=== PATIENT | male | born 1950 | race Caucasian/White ===

== ENCOUNTER 2017-12-05 09:52 | Emergency (ER) | payer MEDICARE, OTHER ==
[~2017-12-05] VITALS: Ht 177.8 cm; Wt 82.5 kg
[2017-12-05] MEDS ORDERED: CLON.5 PO (10:19)
[2017-12-05] MEDS ORDERED: HYDHCL25 PO (10:19)
[2017-12-05] MEDS ORDERED: ATOR10 PO (10:26)
[2017-12-05] MEDS ORDERED: ATEN50 PO (10:26)
[2017-12-05] MEDS ORDERED: AMLO5 PO (10:26)
== END 2017-12-05 10:27 | disposition home or self-care (01) ==
LOC: ER 09:52
DX: Z76.0 Encounter for issue of repeat prescription (principal)
CPT/HCPCS: 99281

== ENCOUNTER 2018-01-07 07:20 | Day surgery (SDC) | payer MEDICARE, OTHER ==
[~2018-01-07] VITALS: Ht 177.8 cm; Wt 85.7 kg
[~2018-01-07 07:20] MED LIST: AMLO5 PO; ATEN50 PO; ATOR10 PO; BENA20 PO; CLON.5 PO; Dyazide 37.5-21 EACH PO; HYDHCL25 PO
== END 2018-01-07 22:36 | disposition home or self-care (01) ==
LOC: ORSCMMR 07:20 → ORD 08:30 → ORSCMMR 08:30
PROVIDERS: Internal Medicine Gastroenterology
PROC: 0DBN8ZX Excision of Sigmoid Colon, Via Natural or Artificial Opening Endoscopic, Diagnostic (ICD-10-PCS; principal; 2018-01-07 08:30)
DX: K92.1 Melena (principal); D12.5 Benign neoplasm of sigmoid colon; K64.4 Residual hemorrhoidal skin tags; Z86.010 Personal history of colon polyps; E78.00 Pure hypercholesterolemia, unspecified; I10 Essential (primary) hypertension; Z79.899 Other long term (current) drug therapy
CPT/HCPCS: 88305; J7120

== ENCOUNTER 2019-01-30 14:03 | Day surgery (SDC) | payer MEDICARE, OTHER ==
[~2019-01-30] VITALS: Ht 171 cm; Wt 87.7 kg
[~2019-01-30 14:03] MED LIST changes: +ALLO100 PO; +AMLO10 PO; +AMOX875 PO; +BACL10; +Benazepril HCl10 MG PO; +Neurontin 300300 MG PO; +OXYC1TAB11 PO; +XTAMPZA ER9 MG PO
--- NOTE | 2019-01-30 14:35 | NUR ---
Ambulatory in Day Surgery. Patient reports completing Chlorhexadine shower X2 prior to admission to hospital. Patient confirms NPO status and agrees with scheduled surgery. History, Chart, Medications and Allergies reviewed before start of procedure.Surgical site prepped with 2% Chlorhexidine cloth wipe. Patient States Post-Procedure ride home has been arranged. Lungs clear T/O to Auscultation.
--- NOTE | 2019-01-30 16:06 | NUR ---
Patient up to Ambulate independently. Gait steady. Discharge instructions reviewed with patient. Patient verbalizes understanding. Copy given to patient to take home. Patient States Post-Procedure ride home has been arranged. Discharged via wheelchair to private car for ride home. ALL BELONINGS ACCOUNTED FOR AND RETURNED TO PATIENT.
== END 2019-01-30 16:06 | disposition home or self-care (01) ==
LOC: SURS 14:03 → ORSCMMR 14:03 → ORD 15:30 → ORSCMMR 15:30 → SURS 16:06 → ORSCMMR 16:06
PROVIDERS: Orthopaedic Surgery
PROC: 0PPT04Z Removal of Internal Fixation Device from Right Finger Phalanx, Open Approach (ICD-10-PCS; principal; 2019-01-30 15:30)
DX: T84.84XA Pain due to internal orthopedic prosthetic devices, implants and grafts, initial encounter (principal); I10 Essential (primary) hypertension; Z86.73 Personal history of transient ischemic attack (TIA), and cerebral infarction without residual deficits; Z79.899 Other long term (current) drug therapy
CPT/HCPCS: 73120; A9270-GY; J0690; J2250; J2704; J3010; J7120

== ENCOUNTER 2019-02-04 00:18 | Emergency (ER) | payer MEDICARE, OTHER ==
[~2019-02-04] VITALS: Ht 177.8 cm; Wt 86.2 kg
== END 2019-02-04 00:59 | disposition home or self-care (01) ==
LOC: ER 00:18
DX: Z48.89 Encounter for other specified surgical aftercare (principal); I10 Essential (primary) hypertension; Z87.891 Personal history of nicotine dependence; Z79.899 Other long term (current) drug therapy; Z79.891 Long term (current) use of opiate analgesic
CPT/HCPCS: 99283

== ENCOUNTER 2019-02-27 14:27 | Emergency (ER) | payer MEDICARE, OTHER ==
[~2019-02-27] VITALS: Ht 177.8 cm; Wt 79.8 kg
[2019-02-27 15:11] LABS: BASOPHILS ABSOLUTE AUTO 0.06 K/mm3 (0.00-0.23); BASOPHILS PERCENT AUTO 1 % (0-2); EOSINOPHILS ABSOLUTE AUTO 0.05 K/mm3 (0.00-0.68); EOSINOPHILS PERCENT AUTO 1 % (0-6); Hemoglobin 14.4 g/dL (13.5-17.5); IMMATURE GRAN ABSOLUTE AUTO 0.03 K/mm3 (0.00-0.10); IMMATURE GRAN PERCENT AUTO 0 % (0-1); LYMPHOCYTES ABSOLUTE AUTO 0.99 K/mm3 (0.84-5.20); LYMPHOCYTES PERCENT AUTO 9 % (21-46); MONOCYTES ABSOLUTE AUTO 0.91 K/mm3 (0.16-1.47); MONOCYTES PERCENT AUTO 9 % (4-13); Mean Corpuscular HGB 29.9 pg (26.0-34.0); Mean Corpuscular HGB Conc 32.7 g/dL (31.5-36.5); Mean Corpuscular Volume 92 fL (80-100); Mean Platelet Volume 10.3 fL (9.1-12.4); NEUTROPHILS ABSOLUTE AUTO 8.55 K/mm3 (1.96-9.15); NEUTROPHILS PERCENT AUTO 81 % (41-73); Platelet Count 271 K/mm3 (150-400); RDW Coefficient Variation 13.2 % (11.7-14.2); RDW Standard Deviation 44.5 fL (35.1-46.3); Red Blood Cell Count 4.81 M/mm3 (4.30-5.90); White Blood Cell Count 10.59 K/mm3 (4.00-11.30)
[2019-02-27 15:34] LABS: Alanine Aminotransfer (ALT/SGP 28 U/L (12-78); Albumin, Blood 4.3 g/dL (3.4-5.0); Albumin/Globulin Ratio 1.3 (0.8-1.8); Alk Phos 115 U/L (50-136); Anion Gap 9 mmol/L (6-16); Aspartate Aminotrans (AST/SGOT 39 U/L (12-37); Bilirubin, Total 0.9 mg/dL (0.1-1.0); Blood Urea Nitrogen 18 mg/dL (8-24); Bun/Creatinine Ratio 9.1 (12.0-20.0); CO2, Blood 23 mmol/L (21-32); Calcium, Blood 9.3 mg/dL (8.5-10.1); Chloride, Blood 109 mmol/L (98-108); Creatinine, Blood 1.98 mg/dL (0.60-1.20); Globulin, Blood 3.3 g/dL (2.2-4.0); Glomerular Filtration Rate 36 (60-); Glucose, Blood 113 mg/dL (70-99); Sodium, Blood 141 mmol/L (136-145); Total Protein, Blood 7.6 g/dL (6.4-8.2)
[2019-02-27] MEDS ORDERED: BENA20 PO (15:38)
[2019-02-27] MEDS ORDERED: CLON.5 PO (15:39)
[2019-02-27 16:28] LABS: Source, Urine Clean Catch
[2019-02-27 16:34] LABS: Bilirubin, Urine Neg (Neg); Blood, Urine Neg (Neg); Glucose Qualitative, Urine Neg (Neg); Ketones, Urine 1+ (Neg); Leukocyte Esterase, Urine Neg (Neg); Nitrite, Urine Neg (Neg); Protein, Urine 2+ (Neg); Specific Gravity, Urine 1.015 (1.003-1.022); Urobilinogen, Urine 2+ (Normal)
[2019-02-27 16:48] LABS: Appearance, Urine Clear (Clear); Color, Urine Yellow (P-Yellow)
[2019-02-27 16:49] LABS: Bacteria Mod /hpf; Hyaline Casts TNTC /lpf (0-2); Mucus Light (0-Heavy); Red Blood Cells, Urine Not Seen /hpf (0-2); Squamous Epithelial Cells Few /hpf (Few); White Blood Cells, Urine 0-2 /hpf (0-5)
== END 2019-02-27 17:15 | disposition home or self-care (01) ==
LOC: ER 14:27
PROVIDERS: Physician Assistant
DX: I95.9 Hypotension, unspecified (principal); I10 Essential (primary) hypertension; Z79.899 Other long term (current) drug therapy; Z79.891 Long term (current) use of opiate analgesic
CPT/HCPCS: 36415; 80053; 81001; 84484; 85025; 93005; 93010; 99283-25; J7030

== ENCOUNTER 2020-01-21 01:06 | Emergency (ER) | payer MEDICARE ==
[~2020-01-21] VITALS: Ht 177.8 cm; Wt 81.7 kg
== END 2020-01-21 02:51 | disposition home or self-care (01) ==
LOC: ER 01:06
DX: L25.9 Unspecified contact dermatitis, unspecified cause (principal); Z79.899 Other long term (current) drug therapy
CPT/HCPCS: 96372; 99282; J3301

== ENCOUNTER 2020-01-27 18:02 | Emergency (ER) | payer MEDICARE ==
[~2020-01-27] VITALS: Ht 177.8 cm; Wt 83.9 kg
[2020-01-27] MEDS ORDERED: AMOCLA875 PO (19:05)
== END 2020-01-27 19:12 | disposition home or self-care (01) ==
LOC: ER 18:02
DX: S61.251A Open bite of left index finger without damage to nail, initial encounter (principal); I10 Essential (primary) hypertension; Z79.899 Other long term (current) drug therapy; Z23 Encounter for immunization; W54.0XXA Bitten by dog, initial encounter
CPT/HCPCS: 90471; 90714; 99283-25

== ENCOUNTER 2020-07-02 10:59 | Emergency (ER) | payer MEDICARE, SELFPAY ==
[~2020-07-02] VITALS: Ht 177.8 cm; Wt 85.7 kg
[~2020-07-02 10:59] MED LIST changes: +AMOCLA875 PO
[2020-07-02 11:33] LABS: BASOPHILS ABSOLUTE AUTO 0.12 K/mm3 (0.00-0.23); BASOPHILS PERCENT AUTO 1 % (0-2); EOSINOPHILS ABSOLUTE AUTO 0.17 K/mm3 (0.00-0.68); EOSINOPHILS PERCENT AUTO 1 % (0-6); Hemoglobin 15.4 g/dL (13.5-17.5); IMMATURE GRAN ABSOLUTE AUTO 0.06 K/mm3 (0.00-0.10); IMMATURE GRAN PERCENT AUTO 1 % (0-1); LYMPHOCYTES ABSOLUTE AUTO 0.77 K/mm3 (0.84-5.20); LYMPHOCYTES PERCENT AUTO 6 % (21-46); MONOCYTES PERCENT AUTO 9 % (4-13); Mean Corpuscular HGB 30.9 pg (26.0-34.0); Mean Corpuscular HGB Conc 32.8 g/dL (31.5-36.5); Mean Corpuscular Volume 94 fL (80-100); Mean Platelet Volume 10.1 fL (9.1-12.4); NEUTROPHILS PERCENT AUTO 83 % (41-73); Platelet Count 244 K/mm3 (150-400); RDW Coefficient Variation 12.6 % (11.7-14.2); RDW Standard Deviation 43.8 fL (35.1-46.3); Red Blood Cell Count 4.99 M/mm3 (4.30-5.90); White Blood Cell Count 12.72 K/mm3 (4.00-11.30)
[2020-07-02 11:50] LABS: Source, Urine Clean Catch
[2020-07-02 11:51] LABS: Bilirubin, Total 0.8 mg/dL (0.1-1.0); Bun/Creatinine Ratio 12.7 (12.0-20.0); Calcium, Blood 8.8 mg/dL (8.5-10.1); Creatinine, Blood 1.89 mg/dL (0.60-1.20); Globulin, Blood 4.2 g/dL (2.2-4.0); Potassium, Blood 4.6 mmol/L (3.5-5.5); Total Protein, Blood 8.2 g/dL (6.4-8.2)
[2020-07-02 12:40] LABS: Appearance, Urine Hazy (Clear); Blood, Urine 1+ (Neg); Color, Urine Yellow (P-Yellow); Glucose Qualitative, Urine Neg (Neg); Ketones, Urine Neg (Neg); Leukocyte Esterase, Urine 1+ (Neg); Nitrite, Urine Neg (Neg); Protein, Urine 3+ (Neg); Urobilinogen, Urine 1+ (Normal)
[2020-07-02 12:54] LABS: Bilirubin, Urine 2+ (Neg)
[2020-07-02 12:55] LABS: Bacteria Mod /hpf; Squamous Epithelial Cells Rare /hpf (Few)
[2020-07-02 12:56] LABS: Granular Casts 0-2 /lpf (0)
[2020-07-02] MEDS ORDERED: CEFP200 PO (13:47)
== END 2020-07-02 14:22 | disposition home or self-care (01) ==
LOC: ER 10:59
PROVIDERS: Emergency Medicine
DX: T40.601A Poisoning by unspecified narcotics, accidental (unintentional), initial encounter (principal); N17.9 Acute kidney failure, unspecified; N39.0 Urinary tract infection, site not specified; Z79.899 Other long term (current) drug therapy
CPT/HCPCS: 36415; 80053; 81001; 85025; 87086; 93005; 93010; 96374; 99284-25; J2310

== ENCOUNTER 2021-01-01 19:42 | Emergency (ER) | payer MEDICARE ==
[~2021-01-01] VITALS: Ht 177.8 cm; Wt 81.7 kg
[~2021-01-01 19:42] MED LIST changes: +CEFP200 PO
[2021-01-01 22:42] LABS: BASOPHILS ABSOLUTE AUTO 0.08 K/mm3 (0.00-0.23); BASOPHILS PERCENT AUTO 1 % (0-2); EOSINOPHILS ABSOLUTE AUTO 0.04 K/mm3 (0.00-0.68); EOSINOPHILS PERCENT AUTO 1 % (0-6); Hematocrit 44.1 % (37.0-53.0); Hemoglobin 14.9 g/dL (13.5-17.5); IMMATURE GRAN ABSOLUTE AUTO 0.02 K/mm3 (0.00-0.10); IMMATURE GRAN PERCENT AUTO 0 % (0-1); LYMPHOCYTES ABSOLUTE AUTO 0.79 K/mm3 (0.84-5.20); LYMPHOCYTES PERCENT AUTO 11 % (21-46); MONOCYTES ABSOLUTE AUTO 0.76 K/mm3 (0.16-1.47); MONOCYTES PERCENT AUTO 11 % (4-13); Mean Corpuscular HGB 31.2 pg (26.0-34.0); Mean Corpuscular HGB Conc 33.8 g/dL (31.5-36.5); Mean Corpuscular Volume 93 fL (80-100); Mean Platelet Volume 10.3 fL (9.1-12.4); NEUTROPHILS ABSOLUTE AUTO 5.31 K/mm3 (1.96-9.15); NEUTROPHILS PERCENT AUTO 76 % (41-73); Platelet Count 199 K/mm3 (150-400); Red Blood Cell Count 4.77 M/mm3 (4.30-5.90)
[2021-01-01 23:01] LABS: Alanine Aminotransfer (ALT/SGP 25 U/L (12-78); Albumin, Blood 3.8 g/dL (3.4-5.0); Albumin/Globulin Ratio 0.9 (0.8-1.8); Alk Phos 99 U/L (50-136); Anion Gap 5 mmol/L (6-16); Aspartate Aminotrans (AST/SGOT 22 U/L (12-37); Bilirubin, Total 0.7 mg/dL (0.1-1.0); Blood Urea Nitrogen 14 mg/dL (8-24); Bun/Creatinine Ratio 14.5 (12.0-20.0); CO2, Blood 26 mmol/L (21-32); Calcium, Blood 8.3 mg/dL (8.5-10.1); Chloride, Blood 103 mmol/L (98-108); Creatinine, Blood 0.97 mg/dL (0.60-1.20); Globulin, Blood 4.1 g/dL (2.2-4.0); Glomerular Filtration Rate >60 (60-); Glucose, Blood 111 mg/dL (70-99); Potassium, Blood 4.1 mmol/L (3.5-5.5); Sodium, Blood 134 mmol/L (136-145); Total Protein, Blood 7.9 g/dL (6.4-8.2); Troponin I <0.015 ng/mL (0.000-0.040)
[2021-01-01 23:33] LABS: SARS-Cov-2 (COVID-19) PCR, MMC NEGATIVE (NEGATIVE)
== END 2021-01-01 23:23 | disposition home or self-care (01) ==
LOC: ER 19:42
PROVIDERS: Physician Assistant
DX: R50.83 Postvaccination fever (principal); R53.83 Other fatigue; M79.10 Myalgia, unspecified site; Z20.822 Contact with and (suspected) exposure to COVID-19
CPT/HCPCS: 36415; 71045; 80053; 84484; 85025; 93005; 93010; 99284-25; U0004

== ENCOUNTER 2021-12-05 14:53 | Emergency (ER) | payer OTHER, MEDICARE ==
[~2021-12-05] VITALS: Ht 177.8 cm; Wt 81.7 kg
== END 2021-12-05 19:45 | disposition home or self-care (01) ==
LOC: ER 14:53
DX: T40.2X1A Poisoning by other opioids, accidental (unintentional), initial encounter (principal); T42.4X1A Poisoning by benzodiazepines, accidental (unintentional), initial encounter; R40.4 Transient alteration of awareness; J80 Acute respiratory distress syndrome; I10 Essential (primary) hypertension; Y92.481 Parking lot as the place of occurrence of the external cause
CPT/HCPCS: J2310

== ENCOUNTER 2023-11-13 22:23 | Emergency (ER) | payer OTHER, MEDICARE ==
[~2023-11-13] VITALS: Ht 177.8 cm; Wt 83.9 kg
[~2023-11-13 22:23] MED LIST changes: +KLONOPIN0.5 M9 PO; +LIDO700A20 TOP
[2023-11-13 22:30] VITALS: BP 165/85
[2023-11-13] MEDS ORDERED: TRAM50 PO (23:40)
[2023-11-13] MEDS ORDERED: LIDO700A20 TOP (23:40)
== END 2023-11-13 23:52 | disposition home or self-care (01) ==
LOC: ER 22:23
DX: S20.212A Contusion of left front wall of thorax, initial encounter (principal); I10 Essential (primary) hypertension; W01.190A Fall on same level from slipping, tripping and stumbling with subsequent striking against furniture, initial encounter; Z79.899 Other long term (current) drug therapy; Z96.652 Presence of left artificial knee joint
CPT/HCPCS: 71046; 99283-25

== ENCOUNTER 2024-03-12 01:49 | Emergency (ER) | payer MEDICARE, OTHER ==
[~2024-03-12] VITALS: Ht 177.8 cm; Wt 90.7 kg
[~2024-03-12 01:49] MED LIST changes: +TRAM50 PO
[2024-03-12 01:55] VITALS: BP 120/81
== END 2024-03-12 04:38 | disposition home or self-care (01) ==
LOC: ER 01:49
DX: S63.502A Unspecified sprain of left wrist, initial encounter (principal); I10 Essential (primary) hypertension; W10.9XXA Fall (on) (from) unspecified stairs and steps, initial encounter; Z79.899 Other long term (current) drug therapy
CPT/HCPCS: 29125; 73110; 99283-25

== ENCOUNTER → 2024-04-21 | Outpatient (CLI) | payer OTHER, MEDICARE ==
[2024-04-24 05:13] LABS: ANTI-NUCLEAR AB ANA,IGG ELISA Detected (None Detected)
[2024-04-25 10:10] LABS: ANTINUCLEAR AB (ANA),HEP-2,IGG <1:80 (<1:80)
== END | disposition home or self-care (01) ==
LOC: LAB 18:44 → LAB SHORT 18:44
DX: M25.541 Pain in joints of right hand (principal); M25.542 Pain in joints of left hand
CPT/HCPCS: 83516; 85651; 86038; 86039; 86140; 86431

== ENCOUNTER 2024-10-16 04:28 | Emergency (ER) | payer MEDICARE, OTHER ==
[~2024-10-16] VITALS: Ht 177.8 cm; Wt 88.5 kg
[2024-10-16 04:38] VITALS: BP 133/92
[2024-10-16] MEDS ORDERED: Lidocaine 4% 1 Patch TOP ONE (05:05)
== END 2024-10-16 05:58 | disposition home or self-care (01) ==
LOC: ER 04:28
DX: S13.4XXA Sprain of ligaments of cervical spine, initial encounter (principal); W20.8XXA Other cause of strike by thrown, projected or falling object, initial encounter; Z59.89 Other problems related to housing and economic circumstances; I10 Essential (primary) hypertension
CPT/HCPCS: 36415; 72125; 80053; 80061; 82570; 84156; 84443; 85025; 99283-25; A9270

== ENCOUNTER 2024-12-21 11:48 | Emergency (ER) | payer MEDICARE, OTHER ==
[~2024-12-21] VITALS: Ht 177.8 cm; Wt 84.5 kg
[2024-12-21] MEDS ORDERED: AMLODIPINE BESYL5 MG PO (12:03)
[2024-12-21] MEDS ORDERED: ATENOLOL25 MG PO (12:03)
[2024-12-21 12:17] LABS: BASOPHILS ABSOLUTE AUTO 0.09 K/mm3 (0.00-0.23); BASOPHILS PERCENT AUTO 1 % (0-2); EOSINOPHILS ABSOLUTE AUTO 0.08 K/mm3 (0.00-0.68); EOSINOPHILS PERCENT AUTO 1 % (0-6); Hematocrit 41.1 % (37.0-53.0); Hemoglobin 13.8 g/dL (13.5-17.5); IMMATURE GRAN ABSOLUTE AUTO 0.02 K/mm3 (0.00-0.10); IMMATURE GRAN PERCENT AUTO 0 % (0-1); LYMPHOCYTES ABSOLUTE AUTO 1.41 K/mm3 (0.84-5.20); LYMPHOCYTES PERCENT AUTO 18 % (21-46); MONOCYTES ABSOLUTE AUTO 0.78 K/mm3 (0.16-1.47); MONOCYTES PERCENT AUTO 10 % (4-13); Mean Corpuscular HGB Conc 33.6 g/dL (31.5-36.5); Mean Corpuscular Volume 94 fL (80-100); NEUTROPHILS ABSOLUTE AUTO 5.40 K/mm3 (1.96-9.15); NEUTROPHILS PERCENT AUTO 69 % (41-73); NRBC ABSOLUTE 0.00 K/mm3 (0.00-0.02); NRBC Auto 0.0 /100 WBC (0.0-0.2); Platelet Count 246 K/mm3 (150-400); RDW Coefficient Variation 13.0 % (11.7-14.2); RDW Standard Deviation 44.4 fL (35.1-46.3)
[2024-12-21] MEDS ORDERED: Ondansetron HCl 2 MG / ML 2ML Vial IV ONE (12:35)
[2024-12-21] MEDS ORDERED: FentaNYL Citrate 50 MCG/ML 2 ML Injection IV ONE ×2 (12:35→14:10)
[2024-12-21 12:38] LABS: Alanine Aminotransfer (ALT/SGP 25.0 U/L (12-78); Albumin, Blood 3.3 g/dL (3.4-5.0); Albumin/Globulin Ratio 0.9 (0.8-1.8); Anion Gap 8.0 mmol/L (3-11); Aspartate Aminotrans (AST/SGOT 26.0 U/L (12-37); Bilirubin, Total 0.8 mg/dL (0.1-1.0); Blood Urea Nitrogen 19.0 mg/dL (8-24); CO2, Blood 25.0 mmol/L (21-32); Calcium, Blood 8.1 mg/dL (8.5-10.1); Chloride, Blood 109.0 mmol/L (98-108); Creatinine, Blood 1.31 mg/dL (0.60-1.20); Globulin, Blood 3.5 g/dL (2.2-4.0); Glucose, Blood 132.0 mg/dL (70-99); Potassium, Blood 4.2 mmol/L (3.5-5.5); Sodium, Blood 138.0 mmol/L (136-145); Total Protein, Blood 6.8 g/dL (6.4-8.2)
[2024-12-21 14:45] VITALS: BP 113/80
== END 2024-12-21 14:59 | disposition home or self-care (01) ==
LOC: ER 11:48
PROVIDERS: Emergency Medicine
DX: R55 Syncope and collapse (principal); I95.9 Hypotension, unspecified; S16.1XXA Strain of muscle, fascia and tendon at neck level, initial encounter; S09.90XA Unspecified injury of head, initial encounter; Z79.82 Long term (current) use of aspirin; Z79.899 Other long term (current) drug therapy; W18.30XA Fall on same level, unspecified, initial encounter
CPT/HCPCS: 70450; 72125; 80053; 83605; 84484; 85025; 93005; 93010; 96361; 96374; 96375; 96376; 99285-25; J2405; J3010; J7120